=== PATIENT | male | born 1975 | race Two or more races ===

== ENCOUNTER 2019-06-28 15:36 | Emergency (ER) | payer MEDICAID ==
[~2019-06-28] VITALS: Ht 180.3 cm; Wt 78.0 kg
[~2019-06-28 15:36] MED LIST: IBUP-1986 PO
[2019-06-28 15:51] VITALS: BP 128/79
[2019-06-28] MEDS ORDERED: BACDS PO (16:17)
== END 2019-06-28 16:25 | disposition home or self-care (01) ==
LOC: ER 15:37
DX: S81.801A Unspecified open wound, right lower leg, initial encounter (principal); L98.9 Disorder of the skin and subcutaneous tissue, unspecified; R50.9 Fever, unspecified; I10 Essential (primary) hypertension; F10.99 Alcohol use, unspecified with unspecified alcohol-induced disorder; Z59.0 Homelessness; Z98.890 Other specified postprocedural states; Z79.899 Other long term (current) drug therapy; X58.XXXA Exposure to other specified factors, initial encounter; Y93.89 Activity, other specified; Y92.89 Other specified places as the place of occurrence of the external cause; Y99.8 Other external cause status; Y90.9 Presence of alcohol in blood, level not specified
CPT/HCPCS: 99283

== ENCOUNTER 2021-03-13 01:31 | Emergency (ER) | payer MEDICAID ==
[~2021-03-13] VITALS: Ht 177.8 cm; Wt 84.1 kg
[2021-03-13 01:33] VITALS: BP 127/78
[2021-03-13] MEDS ORDERED: triamcinolone acetonide 40mg/ml inj IM ONE (03:10)
== END 2021-03-13 03:25 | disposition home or self-care (01) ==
LOC: ER 01:31
DX: T65.91XA Toxic effect of unspecified substance, accidental (unintentional), initial encounter (principal); L23.7 Allergic contact dermatitis due to plants, except food; Y92.89 Other specified places as the place of occurrence of the external cause
CPT/HCPCS: 96372; 99283; J3301

== ENCOUNTER 2021-12-29 19:54 | Emergency (ER) | payer MEDICAID ==
[~2021-12-29] VITALS: Ht 177.8 cm; Wt 81.8 kg
[2021-12-30] MEDS ORDERED: colchicine 0.6mg tablet PO ONE (01:15)
[2021-12-30] MEDS ORDERED: HYDR-3972 PO (01:29)
[2021-12-30] MEDS ORDERED: COLC0.6T72 PO (01:29)
[2021-12-30 01:41] VITALS: BP 135/94
== END 2021-12-30 01:44 | disposition home or self-care (01) ==
LOC: ER 19:55
DX: M25.531 Pain in right wrist (principal); M13.831 Other specified arthritis, right wrist; I10 Essential (primary) hypertension; Z59.00 Homelessness unspecified; X50.1XXA Overexertion from prolonged static or awkward postures, initial encounter; Y93.89 Activity, other specified; Y92.89 Other specified places as the place of occurrence of the external cause; Y99.8 Other external cause status
CPT/HCPCS: 29125; 73110; 99283

== ENCOUNTER 2023-01-12 23:49 | Emergency (ER) | payer MEDICAID ==
[~2023-01-12] VITALS: Ht 175.3 cm; Wt 84.1 kg
[~2023-01-12 23:49] MED LIST changes: +COLC0.6T72 PO
[2023-01-13 00:16] VITALS: BP 138/90
[2023-01-13] MEDS ORDERED: dexamethasone sod phosphate 10mg/ml inj IM STA (00:56)
[2023-01-13] MEDS ORDERED: triamcinolone acetonide 40mg/ml inj IM ONE (01:10)
== END 2023-01-13 01:27 | disposition home or self-care (01) ==
LOC: ER 23:50
DX: L23.7 Allergic contact dermatitis due to plants, except food (principal); I10 Essential (primary) hypertension; Z59.00 Homelessness unspecified
CPT/HCPCS: 96372; 99283; J3301